=== PATIENT | female | born 1950 | race Caucasian/White ===

== ENCOUNTER 2016-08-22 06:43 | Day surgery (SDC) | payer BC ==
--- NOTE | ~2016-08-22 | EGD ---
EGD REPORT [facility] [address] [place]. [address] NAME: BENIGNO KC : [birth year] STATUS : REG [facility]#: [id number] AGE: 66 ADM/REG DATE : 08/22/16 MR#: [id number] REPORT SERV DATE: 08/22/16 DICTATED BY: GUTIERREZ LEON DATE: 08/22/16 REPORT STATUS : Draft TRANSCRIBED BY: [employer] DATE: 08/22/16 [facility] Patient Name: Mariela Kc Date of : 1950 Attending MD: GUTIERREZ LEON MD Procedure Date No Time: 08/22/2016 Procedure: Colonoscopy Indications: FH of Colonic Polyps - 1st degree relative, hx anal ca Referring MD: DAVID VERA MD, JUAN C OLIVA MD, MAGUE LEY Medicines: as per anesthesia Complications: No immediate complications. Procedure: Pre-Anesthesia Assessment: - ASA Grade Assessment: II - A patient with mild systemic disease. After I obtained informed consent, the scope was passed under direct vision. Throughout the procedure, the patient's blood pressure, pulse, and oxygen saturations were monitored continuously. The PCF [id number] was introduced through the anus and advanced to the cecum, identified by appendiceal orifice and ileocecal valve. The colonoscopy was performed without difficulty. The patient tolerated the procedure. The quality of the bowel preparation was adequate to identify polyps. Findings: The perianal and digital rectal examinations were normal. A few small-mouthed diverticula were found in the sigmoid colon. Impression: - Diverticulosis in the sigmoid colon. Recommendation: - Repeat colonoscopy in 5 years for surveillance. Procedure Code(s): --- Professional --- 23324, Colonoscopy, flexible, proximal to splenic flexure; diagnostic, with or without collection of specimen(s) by brushing or washing, with or without colon decompression (separate procedure) Diagnosis Code(s): --- Professional --- K57.30, Diverticulosis of large intestine without perforation or abscess without bleeding Z83.71, Family history of colonic polyps CPT copyright 2013 [employer]. All rights reserved. EGD REPORT [facility] [address] [address] NAME: BENIGNO KC : [birth year] STATUS : REG [facility] PAT#: [id number] AGE: 66 ADM/REG DATE : 08/22/16 MR#: [id number] REPORT SERV DATE: 08/22/16 DICTATED BY: GUTIERREZ LEON. DATE: 08/22/16 REPORT STATUS : Draft TRANSCRIBED BY: [employer] DATE: 08/22/16 The codes documented in this report are preliminary and upon mat packer review may be revised to meet current compliance requirements. GUTIERREZ LEON MD 08/22/2016 8:02 AM This report has been signed electronically. Number of Addenda: 0 Note Initiated On: 08/22/2016 7:23 AM Scope Withdrawal Time 0 hours 11 minutes [address] [place], [place] [address] [address]
[~2016-08-22 06:43] MED LIST: ACTEMRA80 MG/4 ML IV; ALAVERT10 MG PO; ASAB PO; ATV1 PO; CLARIT10 PO; COMP10B PO; CRESTOR10 PO; FOLIC PO; LORTAB 5 PO; LUNESTA3 MG PO; METHOTREXATE; MULTIVITAMI1 PO
== END 2016-08-22 23:59 | disposition home or self-care (01) ==
LOC: DMU 06:43
PROVIDERS: Internal Medicine Gastroenterology
PROC: 0DJD8ZZ Inspection of Lower Intestinal Tract, Via Natural or Artificial Opening Endoscopic (ICD-10-PCS; principal; 2016-08-22 07:30)
DX: K57.30 Diverticulosis of large intestine without perforation or abscess without bleeding (principal); E78.00 Pure hypercholesterolemia, unspecified; M06.9 Rheumatoid arthritis, unspecified; Z83.71 Family history of colonic polyps; Z86.010 Personal history of colon polyps; Z85.048 Personal history of other malignant neoplasm of rectum, rectosigmoid junction, and anus; Z86.718 Personal history of other venous thrombosis and embolism; Z98.51 Tubal ligation status; Z79.82 Long term (current) use of aspirin; Z79.899 Other long term (current) drug therapy; Z98.890 Other specified postprocedural states